=== PATIENT | female | born 1940 | race Caucasian/White ===

== ENCOUNTER 2016-09-08 10:43 | Outpatient (CLI) | payer MEDICARE | END 2016-09-08 10:44 | disposition home or self-care (01) | DX: Z12.31 Encounter for screening mammogram for malignant neoplasm of breast (principal); Z80.3 Family history of malignant neoplasm of breast ==

== ENCOUNTER 2017-02-10 12:36 | Outpatient (CLI) | payer MEDICARE | END 2017-02-10 12:37 | disposition home or self-care (01) | LOC: DI 12:36 | PROVIDERS: ATTEND Family Medicine | DX: I51.7 Cardiomegaly (principal); I34.0 Nonrheumatic mitral (valve) insufficiency; R01.1 Cardiac murmur, unspecified | CPT/HCPCS: 93306 ==

== ENCOUNTER 2017-03-11 08:18 | Outpatient (CLI) | payer MEDICARE, OTHER ==
--- NOTE | 2017-03-11 15:55 | Ultrasound Report ---
RENAL ARTERY DOPPLER: 03/11/2017 CLINICAL HISTORY: Hypertension. TECHNIQUE: Real time scanning by the patcher wood welder including Doppler technique with saved static images were reviewed. RT KIDNEY LT KIDNEY Size: 11.7 x 4.9 x 5.8 cm Size: 11.1 x 6.4 x 5.5 cm SEGMENTAL ARTERY SEGMENTAL ARTERY PSV RI PSV RI Upper Pole 73 0.84 Upper Pole 70 0.87 Mid Pole 78 0.79 Mid Pole 90 0.82 Lower Pole 64 0.83 Lower Pole 95 0.85 RIGHT RENAL ARTERY LEFT RENAL ARTERY PSV RA/AO PSV RA/AO Origin: 111 1.4 Origin: 91 1.2 Proximal: 110 1.4 Proximal: 93 1.2 Mid: 102 1.3 Mid: 133 1.7 --- --- 82 1.1 Distal: 100 1.3 Distal: 56 0.71 --- --- 93 1.2 PROX AORTA PSV: 78 cm/sec RRV patent Yes LRV patent Yes CRITERIA FOR CLASSIFICATION OF RENAL ARTERY DISEASE BY DUPLEX SCANNING RENAL ARTERY DIAMETER REDUCTION RENAL ARTERY PSV RAR Normal < 180 cm/sec <3.5 < 60 % >180 cm/sec <3.5 < 60 % >180 cm/sec <3.5 Occlusion (100)% No signal No signal COMPARISON: Abdomen ultrasound of 05/06/2010. FINDINGS: RIGHT KIDNEY: 11.7 x 4.9 x 5.8 cm. Scattered simple cysts are present, the largest 3.9 x 3.1 x 3.7 cm. LEFT KIDNEY: 11.1 x 6.4 x 5.5 cm. Normal echotexture. IMPRESSION: BASED ON PEAK SYSTOLIC VELOCITY IN THE RENAL ARTERIES, NO EVIDENCE OF A HEMODYNAMICALLY SIGNIFICANT STENOSIS. MILDLY ELEVATED RESISTIVE INDICES WITHIN EACH KIDNEY. MTDD
== END 2017-03-11 08:19 | disposition home or self-care (01) ==
LOC: DI 08:18
PROVIDERS: ATTEND Family Medicine
DX: I10 Essential (primary) hypertension (principal)
CPT/HCPCS: 93975

== ENCOUNTER 2017-04-07 11:29 | Outpatient (CLI) | payer MEDICARE, OTHER ==
[2017-04-07 20:12] LABS: ALBUMIN/GLOBULIN RATIO 1.4 (1.0-2.2); BUN - BLOOD UREA NITROGEN 9 mg/dL (6-20); CALCIUM 8.7 mg/dL (8.5-10.3); CARBON DIOXIDE - CO2 43 mmol/L (21-32); CHLORIDE 86 mmol/L (101-111); CHOL/HDL RATIO 3.4 (<4.4); CHOLESTEROL 150 mg/dL; CREATININE 0.7 mg/dL (0.4-1.0); GFR - MDRD 82 (>89); GLUCOSE 66 mg/dL (70-100); HDL CHOLESTEROL 44 mg/dL; POTASSIUM 1.7 mmol/L (3.5-5.0); SODIUM 141 mmol/L (135-145); TOTAL PROTEIN 6.9 g/dL (6.7-8.2); TRIGLYCERIDES 83 mg/dL; VLDL CHOLESTEROL 17 mg/dL
== END 2017-04-07 11:30 ==
LOC: LAB.WCP 11:29
PROVIDERS: ATTEND Family Medicine
DX: I10 Essential (primary) hypertension (principal); R53.83 Other fatigue; E78.5 Hyperlipidemia, unspecified
CPT/HCPCS: 36415; 80053; 80061; 84443

== ENCOUNTER 2017-04-07 20:56 | Inpatient (IN) | payer MEDICARE, OTHER ==
[2017-04-07] MEDS ORDERED: POTASSIUM CHLORIDE 20 MEQ TABLET PO STA (21:07)
[2017-04-07] MEDS ORDERED: POTASSIUM CHLOR 10 MEQ/100 ML 10 MEQ/100 ML BAG IV ONE ×2 (21:07→21:19)
[2017-04-07] MEDS ORDERED: POTASSIUM CHLORIDE 20 MEQ TABLET PO ONE (21:18)
[2017-04-07 21:27] LABS: BASOPHILS # (AUTO) 0.2 10^3/uL (0.0-0.1); BASOPHILS % (AUTO) 2.5 %; EOSINOPHILS # (AUTO) 0.3 10^3/uL (0.0-0.7); EOSINOPHILS % (AUTO) 4.2 %; HCT - HEMATOCRIT 36.4 % (37.0-47.0); HGB - HEMOGLOBIN 12.2 g/dL (12.0-16.0); LYMPHOCYTES # (AUTO) 1.3 10^3/uL (1.5-3.5); LYMPHOCYTES % (AUTO) 20.2 %; MEAN CORPUSCULAR HEMOGLOBIN 28.9 pg (27.0-31.0); MEAN CORPUSCULAR HGB CONC 33.6 g/dL (32.0-36.0); MEAN CORPUSCULAR VOLUME 85.9 fL (81.0-99.0); MEAN PLATELET VOLUME 8.6 fL (7.9-10.8); MONOCYTES # (AUTO) 0.3 10^3/uL (0.0-1.0); MONOCYTES % (AUTO) 5.4 %; NEUTROPHILS # (AUTO) 4.2 10^3/uL (1.5-6.6); NEUTROPHILS % (AUTO) 67.7 %; RED BLOOD COUNT 4.24 10^6/uL (4.20-5.40); RED CELL DISTRIBUTION WIDTH 13.6 % (12.0-15.0); UNCORRECTED WHITE BLOOD COUNT 6.2 x10^3/uL; WHITE BLOOD COUNT 6.2 x10^3/uL (4.8-10.8)
[2017-04-07 21:48] LABS: ALBUMIN/GLOBULIN RATIO 1.3 (1.0-2.2); BILIRUBIN,TOTAL 0.6 mg/dL (0.2-1.0); CALCIUM 8.8 mg/dL (8.5-10.3); CREATININE 0.8 mg/dL (0.4-1.0); PHOSPHORUS 3.2 mg/dL (2.5-4.6); TOTAL PROTEIN 6.3 g/dL (6.7-8.2)
[2017-04-07 21:49] LABS: POTASSIUM 1.7 mmol/L (3.5-5.0)
--- NOTE | 2017-04-07 21:54 | ED Physician Documentation ---
History of Present Illness - Stated complaint Stated Complaint: HIGH BP - Chief complaint Chief Complaint: Cardiac - History obtained from History obtained from: Patient, EMS - Additonal information Additional information: Patient is a 76 year old female who was sent into the emergency department for low potassium levels. Patient states that for the last two weeks she has not been feeling well and her blood pressure has been elevated. Patient states that her systolics are normally in the 90s but recently they have been close to 150. Patient states that she went to the clinic today and they did routine blood work. Patient was called back because she was found to have a potassium of 1.7. Review of Systems Constitutional: reports: Fatigue. denies: Fever, Chills Eyes: denies: Decreased vision, Photophobia Ears: reports: Reviewed and negative Nose: denies: Rhinorrhea / runny nose, Congestion Throat: reports: Reviewed and negative Cardiac: reports: Chest pain / pressure, Palpitations Respiratory: reports: Dyspnea. denies: Cough, Wheezing GI: denies: Nausea, Vomiting : reports: Frequency. denies: Dysuria Skin: denies: Rash, Lesions, Abrasion (s) Musculoskeletal: denies: Neck pain, Back pain, Extremity pain Neurologic: reports: Generalized weakness. 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 HEENT: Tonsil/Adenoidectomy - Present Medications Home Medications: Ambulatory Orders Medication Instructions Recorded Confirmed Allertec 10 mg PO DAILY 08/11/15 08/11/15 Aspirin [Adult Low Dose Aspirin EC] 81 mg PO DAILY 08/11/15 08/11/15 Calcium Carbonate 2,400 mg PO DAILY 08/11/15 08/11/15 Cholecalciferol (Vitamin D3) 1,000 unit PO DAILY 08/11/15 08/11/15 [Vitamin D] Citalopram [CeleXA] 20 mg PO DAILY 08/11/15 08/11/15 Glucosam/Chondr-MSM#6/Manganes 1 each PO DAILY 08/11/15 08/11/15 [Glucosamine-Chondroitin Sftgl] Hydrochlorothiazide 25 mg PO DAILY 08/11/15 08/11/15 Magnesium Oxide [Magnesium] 400 mg PO DAILY 08/11/15 08/11/15 Simvastatin 20 mg PO DAILY 08/11/15 08/11/15 - Allergies Allergies/Adverse Reactions: Allergies Allergy/AdvReac Type Severity Reaction Status Date / Time bee pollen Allergy Anaphylaxis Verified 04/07/17 21:57 esomeprazole magnesium * Allergy Unknown Verified 04/07/17 21:57 [From Nexium] Penicillins Allergy Hives Verified 04/07/17 21:57 pineapple Allergy Hives Verified 04/07/17 21:57 PD ED PE NORMAL - Vitals Vital signs reviewed: Yes - General General: Alert and oriented X 3, No acute distress - HEENT HEENT: Atraumatic, PERRL - Neck Neck: Supple, no meningeal sign, No JVD - Cardiac Cardiac: RRR, No rub - Respiratory Respiratory: No respiratory distress, Clear bilaterally - Abdomen Abdomen: Soft, Non tender, Non distended - Derm Derm: Normal color, Warm and dry, No rash - Extremities Extremities: No deformity, No tenderness to palpate - Neuro Neuro: Alert and oriented X 3, No motor deficit, No sensory deficit, Normal speech - Psych Psych: Normal mood, Normal affect PD ED PE EXPANDED - HEENT HEENT: Dry mucous membranes - Cardiac Cardiac: Murmur Present Results - Vitals Vitals: Vital Signs - 24 hr 04/07/17 04/07/17 20:59 21:45 Temperature 35.9 C L 36.5 C Heart Rate 62 56 L Respiratory 18 16 Rate Blood Pressure 168/82 H 165/78 H O2 Saturation 100 97 Oxygen O2 Source Room air - EKG (time done) 2115 Rate: Rate (enter#) (56) Rhythm: NSR [place]: LAD Intervals: Prolonged TN, Prolonged QT Ischemia: ST depression, Non specific changes Compare to prior EKG: Old EKG unavailable - Labs Labs: Laboratory Tests 04/07/17 04/07/17 04/07/17 21:15 21:15 21:15 WBC 6.2 RBC 4.24 Hgb 12.2 Hct 36.4 L MCV 85.9 MCH 28.9 MCHC 33.6 RDW 13.6 Plt Count 254 MPV 8.6 Neut # 4.2 Lymph # 1.3 L [place] # 0.3 Eos # 0.3 Baso # 0.2 H Absolute Nucleated RBC 0.00 Nucleated RBC % 0.0 Sodium 142 Potassium 1.7 L* Chloride 88 L Carbon Dioxide 43 H* Anion Gap 11.0 BUN 11 Creatinine 0.8 Estimated GFR (MDRD) 70 L Glucose 88 Calcium 8.8 Phosphorus 3.2 Magnesium 2.0 Total Bilirubin 0.6 AST 34 ALT 35 Alkaline Phosphatase 61 Troponin I 0.06 B-Natriuretic Peptide Total Protein 6.3 L Albumin 3.5 Globulin 2.8 Albumin/Globulin Ratio 1.3 Lipase 35 TSH 04/07/17 04/07/17 21:15 21:15 WBC RBC Hgb Hct MCV MCH MCHC RDW Plt Count MPV Neut # Lymph # [place] # Eos # Baso # Absolute Nucleated RBC Nucleated RBC % Sodium Potassium Chloride Carbon Dioxide Anion Gap BUN Creatinine Estimated GFR (MDRD) Glucose Calcium Phosphorus Magnesium Total Bilirubin AST ALT Alkaline Phosphatase Troponin I B-Natriuretic Peptide 1226 H Total Protein Albumin Globulin Albumin/Globulin Ratio Lipase TSH 4.37 - Rads (name of study) chest x-ray Radiology: Final report received (cardiomegaly) PD MEDICAL DECISION MAKING - ED course Complexity details: reviewed old records, reviewed results, re-evaluated patient , considered differential, d/w patient, d/w family ED course: Patient was seen and examined at bedside. IV access was gained and labs were drawn. ekg was performed which showed prolonged qt, and prolonged pr. chest x- ray was performed. Previous results from the clinic were reviewed and patient was empirically started on potassium both oral and IV. hospitalist was contacted and the case was discussed with him. Patient was admitted for further evaluation and care. Departure - Departure Disposition: 66 [facility] DC/Xfer Clinical Impression: Hypokalemia Condition: Stable
--- NOTE | 2017-04-07 22:06 | XRAY Preliminary Report ---
Exam: XR CHEST 2 VIEW PA/LAT IMPRESSION: Cardiomegaly, otherwise unremarkable 2-view chest radiography. [facility] SITE ID: [id number]
--- NOTE | 2017-04-07 22:09 | XRAY Report ---
EXAM: CHEST RADIOGRAPHY EXAM DATE: 04/07/2017 09:34 PM. CLINICAL HISTORY: Chest pain and shortness of breath for 2 days. COMPARISON: 03/22/2017. TECHNIQUE: 2 views. FINDINGS: Lungs/Pleura: No focal opacities evident. No pleural effusion. No pneumothorax. Normal volumes. Mediastinum: Large heart. Other: No compression fractures. IMPRESSION: Cardiomegaly, otherwise unremarkable 2-view chest radiography. [facility] Referring Provider Line: [phone] SITE ID: [id number]
[2017-04-07] MEDS ORDERED: PROCHLORPERAZINE 10 MG/2 ML VIAL IVP PRN (22:25)
[2017-04-07] MEDS ORDERED: SODIUM CHLORIDE FLUSH 0.9% 10 ML SYRINGE IVP PRN (22:25)
[2017-04-07] MEDS ORDERED: ONDANSETRON 4 MG/2 ML VIAL IVP PRN (22:25)
[2017-04-07] MEDS ORDERED: ZOLPIDEM 5 MG TABLET PO PRN (22:25)
[2017-04-07] MEDS ORDERED: PROMETHAZINE 25 MG/1 ML VIAL IM PRN (22:25)
[2017-04-07] MEDS ORDERED: oxyCODONE 5 MG TABLET PO PRN (22:25)
[2017-04-08] MEDS: POTASSIUM CHLORIDE 20 MEQ TABLET PO SCH ×7 (00:07→21:01)
[2017-04-08] MEDS: SODIUM CHLORIDE FLUSH 0.9% 10 ML SYRINGE IVP SCH ×3 (00:24→21:01)
[2017-04-08] MEDS: POTASSIUM CHLOR 10 MEQ/100 ML 10 MEQ/100 ML BAG IV SCH ×17 (00:25→23:53)
[2017-04-08] MEDS: ACETAMINOPHEN 325 MG TABLET PO PRN (00:26)
--- NOTE | 2017-04-08 02:48 | HISTORY & PHYSICAL EXAMINATION ---
Chief Complaint - Chief Complaint Chief Complaint: Low potassium History of Present Illness - Admitted From Admitted From:: Emergency department - History Obtained From Records Reviewed: Yes History obtained from: Patient Exam Limitations: None - History of Present Illness HPI Comment/Other: Patient is a 76-year-old female with a past medical history significant for hypertension, hyperlipidemia and history of spinal fusion who presented to the emergency department with a chief complaint of low potassium. The patient states that over the course of the last month she has been having progressively worsening shortness of air with exertion. She states that over the last 2 days it has become significantly worse to a point where she states that she cannot even get up a full flight of stairs without having to stop because of shortness of breath. The patient also states that she has been feeling very tired and has generalized weakness over the last week. The patient states that she has been checking her blood pressure at home and it has been persistently elevated over the last 3-4 weeks. The patient was seen by her primary care physician a few weeks ago and at that time the patient's hydrochlorothiazide was stopped and the patient was started on lisinopril, metoprolol and clonidine. The patient also states that she was evaluated for her hypertension with an echocardiogram a few months ago which showed that the patient did have mildly decreased ejection fraction. The patient also was evaluated with a renal ultrasound to look for renal artery stenosis which was negative. The patient admits to having had a dry cough for the last month as well as orthopnea when she goes to lie in bed. The patient also admitted to a 50 pound weight loss over the last year however she states that this was intentional. Yesterday the patient went to her primary care physician's office and underwent lab work and was called tonight and told to go to the emergency department because of her potassium being low. On presentation the patient states that she continues to feel weak and continues to have shortness of air with exertion. The patient denies having any increased lower extremity swelling. The patient also denies any fevers or chills. The patient denies any palpitations. The patient denies having had any recent diarrhea, vomiting and she denies any decreased oral intake. The patient states that she has not taken her hydrochlorothiazide for at least 2 weeks. The patient states that her blood pressure continues to be high in the 150s when she checks at home. She states prior to a few months ago her blood pressure used to run in the 90s over 60s. The patient denies any headache, blurred vision, runny nose, sore throat, nasal congestion, difficulty swallowing, abdominal pain, nausea, constipation, urinary urgency, urinary frequency, dysuria, joint pains, muscle aches, back pain, neck stiffness, changes in appetite, polydipsia or polyphagia. The patient also denies any focal neurologic deficits. On presentation to the emergency department the patient was afebrile and was hypertensive with a blood pressure of 168/82 but otherwise was not in any respiratory or cardiovascular distress. The patient underwent repeat lab work which did reveal a potassium of 1.7 with a chloride of 88 and a bicarb level of 43. The patient was also found to have a BNP of 1226 and a troponin of 0.06. The patient's TSH was 4.37 and her CBC was normal. The patient was given oral potassium in the emergency department and admitted to the hospital for severe hypokalemia. 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 Living arrangement: At home Living Situation: With spouse/s.o. Social History Notes: The patient lives in [place] with her who has mild Alzheimer's dementia. The patient states that her is still fairly independent but she is his primary caregiver. The patient has 2 biological children a son and a daughter and also a step daughter. 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 She retired to [employer]. The patient has never smoked she rarely drinks alcohol and she denies any illicit drug use. - Substance History Use: Uses substance without health or social issues: NONE Abuse: Recurrent use of substance despite neg consequences: NONE Dependence: Experiences withdrawal or developed tolerances: NONE - POLST Patient has POLST: No POLST Status: Full Code Meds/Allgy - Home Medications Home Medications: Ambulatory Orders Medication Instructions Recorded Confirmed Allertec 10 mg PO DAILY 08/11/15 08/11/15 Aspirin [Adult Low Dose Aspirin EC] 81 mg PO DAILY 08/11/15 08/11/15 Calcium Carbonate 2,400 mg PO DAILY 08/11/15 08/11/15 Cholecalciferol (Vitamin D3) 1,000 unit PO DAILY 08/11/15 08/11/15 [Vitamin D] Citalopram [CeleXA] 20 mg PO DAILY 08/11/15 08/11/15 Glucosam/Chondr-MSM#6/Manganes 1 each PO DAILY 08/11/15 08/11/15 [Glucosamine-Chondroitin Sftgl] Magnesium Oxide [Magnesium] 400 mg PO DAILY 08/11/15 08/11/15 Simvastatin 20 mg PO DAILY 08/11/15 08/11/15 Lisinopril 20 mg PO BID 04/08/17 04/08/17 Metoprolol Tartrate 25 mg PO BID 04/08/17 04/08/17 cloNIDine [Catapres] 0.1 mg PO DAILY 04/08/17 04/08/17 - Allergies Allergies/Adverse Reactions: Allergies Allergy/AdvReac Type Severity Reaction Status Date / Time bee pollen Allergy Anaphylaxis Verified 04/07/17 21:57 esomeprazole magnesium * Allergy Unknown Verified 04/07/17 21:57 [From Nexium] Penicillins Allergy Hives Verified 04/07/17 21:57 pineapple Allergy Hives Verified 04/07/17 21:57 Review of Systems - Other Findings Other Findings: A comprehensive review of systems was performed the pertinent positives and negatives are stated above in the HPI and the remainder of the review of systems is negative. Exam - Vital Signs Reviewed Vital Signs: Yes Vital Signs: Vital Signs x48h Pulse Resp BP Pulse Ox 04/07/17 22:44 56 L 15 160/65 H 93 - Physical Exam General Appearance: positive: No acute distress, Alert Eyes Bilateral: positive: Normal inspection, PERRL, EOMI, No lid inflammation, Conjunctivae nml, No scleral icterus ENT: positive: ENT inspection nml, Pharynx nml, Dry mucous membranes. negative : Purulent nasal drainage, Pharyngeal erythema, Oral lesions Neck: positive: Nml inspection, Thyroid nml, No JVD, Trachea midline. negative : Thyromegaly, Lymphadenopathy (R), Lymphadenopathy (L), Stiff neck, Carotid bruit, Tracheal deviation Respiratory: positive: Chest non-tender, No respiratory distress, Rales (Mild bibasilar) Cardiovascular: positive: Regular rate & rhythm, No murmur, No gallop Peripheral Pulses: positive: 2+ Abdomen: positive: Non-tender, No organomegaly, Nml bowel sounds, No distention. negative: Guarding, Rebound, Hepatomegaly, Splenomegaly Back: positive: Nml inspection. negative: CVA tenderness (R), CVA tenderness (L ) Skin: positive: Color nml, No rash, Warm. negative: Cyanosis, Diaphoresis Extremities: positive: Non-tender, Full ROM, Nml appearance, No pedal edema. negative: Calf tenderness, Joint swelling Neurologic/Psychiatric: positive: Oriented x3, CN's nml (2-12), Motor nml, Sensation nml, Mood/affect nml Conclusion/Plan - Problem List (1) Hypokalemia Conclusion/Plan: Patient has been having symptoms of generalized weakness, fatigue, exertional dyspnea and the patient is noted that she has been hypertensive for the last several months despite multiple medications she continues to be hypertensive. The patient on routine lab work was found to have a potassium of 1.7 which was confirmed in the emergency department. Patient was alkalotic on her chemistry with hypochloremia. The patient stated that she stopped taking her hydrochlorothiazide over 2 weeks ago. Initially the thought was the patient was hypokalemic secondary to thiazide diuretic use however given the diuretic has not been used for over 2 weeks this is very unlikely. The patient is not having diarrhea nor is she vomiting therefore this does not appear to be GI losses causing her hypokalemia. The patient has a normal creatinine but no urine studies are available at this time. It is possible the patient may be having renal losses of potassium although the etiology for this is unclear at this time. The patient may also have primary hyperaldosteronism anemia given her persistent hypertension in conjunction with this hypokalemia. Plan: We will replace patient's potassium both IV and p.o. Patient will be placed on telemetry for monitoring while she is hypokalemic Monitor potassium every 8 hours Check urine potassium, urine sodium, urine creatinine, urine chloride, urine microalbumin, urine analysis and microscopy, 24 hour urine potassium, cortisol level and aldosterone/renin activity. (2) Hypertension Conclusion/Plan: The patient has newly diagnosed hypertension over the last several months which seems to have been resistant to medications. Patient was previously on hydrochlorothiazide but then was switched to metoprolol, lisinopril and clonidine and continues to be hypertensive. Yesterday her primary care physician added amlodipine but she has not taken amlodipine yet. Patient has been worked up with a renal ultrasound to look for secondary causes of hypertension. Patient's renal ultrasound showed no evidence of renal artery stenosis. The patient also underwent an echocardiogram which did show left ventricular hypertrophy consistent with likely long-standing hypertension as well as a reduced ejection fraction. Plan: We will confirm the patient's doses of metoprolol and lisinopril and restart these medications while the patient is hospitalized Monitor blood pressure Titrate antihypertensive medication Check aldosterone/rennin activity to rule out possible primary hyperaldosteronism as source of patient's hypertension Check cortisol level Qualifiers: Hypertension type: unspecified Qualified Code(s): I10 - Essential (primary ) hypertension (3) CHF (congestive heart failure) Conclusion/Plan: Patient presents with increasing exertional dyspnea, mild crackles at the bases and elevated BNP of over 1200. The patient does not have any lower extremity edema, she is not hypoxic and does not appear to be in respiratory distress at rest. The patient does not appear to be in a overt CHF exacerbation. From the patient's symptoms however it is possible that her CHF is progressing or that she may be having ischemic cardiomyopathy. Plan: Repeat echocardiogram given progression in patient's symptoms Continue metoprolol and lisinopril Consider Lasix if patient status worsens. CHF teaching Monitor I's and O's Monitor daily weights Qualifiers: Congestive heart failure type: systolic (4) Hyperlipidemia Conclusion/Plan: Patient has history of hyperlipidemia and is on a statin at home we will continue patient's home dose of statin (5) Prophylactic use of low molecular weight heparin for venous thromboembolism Conclusion/Plan: Patient will be placed on Lovenox for DVT prophylaxis while she is hospitalized. - Lab Results Lab results reviewed: Yes Fish Bones: 04/07/17 21:15 04/07/17 21:15 Other Lab Results: Laboratory Results WBC 6.2 x10^3/uL (4.8-10.8) 04/07/17 21:15 RBC 4.24 10^6/uL (4.20-5.40) 04/07/17 21:15 Hgb 12.2 g/dL (12.0-16.0) 04/07/17 21:15 Hct 36.4 % (37.0-47.0) L 04/07/17 21:15 MCV 85.9 fL (81.0-99.0) 04/07/17 21:15 MCH 28.9 pg (27.0-31.0) 04/07/17 21:15 MCHC 33.6 g/dL (32.0-36.0) 04/07/17 21:15 RDW 13.6 % (12.0-15.0) 04/07/17 21:15 Plt Count 254 10^3/uL (130-450) 04/07/17 21:15 MPV 8.6 fL (7.9-10.8) 04/07/17 21:15 Neut # 4.2 10^3/uL (1.5-6.6) 04/07/17 21:15 Lymph # 1.3 10^3/uL (1.5-3.5) L 04/07/17 21:15 [place] # 0.3 10^3/uL (0.0-1.0) 04/07/17 21:15 Eos # 0.3 10^3/uL (0.0-0.7) 04/07/17 21:15 Baso # 0.2 10^3/uL (0.0-0.1) H 04/07/17 21:15 Absolute Nucleated RBC 0.00 x10^3/uL 04/07/17 21:15 Nucleated RBC % 0.0 /100WBC 04/07/17 21:15 Sodium 142 mmol/L (135-145) 04/07/17 21:15 Potassium 1.7 mmol/L (3.5-5.0) L* 04/07/17 21:15 Chloride 88 mmol/L (101-111) L 04/07/17 21:15 Carbon Dioxide 43 mmol/L (21-32) H* 04/07/17 21:15 Anion Gap 11.0 (6-13) 04/07/17 21:15 BUN 11 mg/dL (6-20) 04/07/17 21:15 Creatinine 0.8 mg/dL (0.4-1.0) 04/07/17 21:15 Estimated GFR (MDRD) 70 (>89) L 04/07/17 21:15 Glucose 88 mg/dL (70-100) 04/07/17 21:15 Calcium 8.8 mg/dL (8.5-10.3) 04/07/17 21:15 Phosphorus 3.2 mg/dL (2.5-4.6) 04/07/17 21:15 Magnesium 2.0 mg/dL (1.7-2.8) 04/07/17 21:15 Total Bilirubin 0.6 mg/dL (0.2-1.0) 04/07/17 21:15 AST 34 IU/L (10-42) 04/07/17 21:15 ALT 35 IU/L (10-60) 04/07/17 21:15 Alkaline Phosphatase 61 IU/L (42-121) 04/07/17 21:15 Troponin I 0.06 ng/mL (<0.49) 04/07/17 21:15 B-Natriuretic Peptide 1226 pg/mL (5-100) H 04/07/17 21:15 Total Protein 6.3 g/dL (6.7-8.2) L 04/07/17 21:15 Albumin 3.5 g/dL (3.2-5.5) 04/07/17 21:15 Globulin 2.8 g/dL (2.1-4.2) 04/07/17 21:15 Albumin/Globulin Ratio 1.3 (1.0-2.2) 04/07/17 21:15 Lipase 35 U/L (22-51) 04/07/17 21:15 TSH 4.37 uIU/mL (0.34-5.60) 04/07/17 21:15 - Diagnostic Imaging Results Diagnostic Imaging Results: positive: Final report reviewed Diagnostic Imaging Results Comments: Chest x-ray Impression: Cardiomegaly, otherwise unremarkable two-view chest radiography. - EKG Results EKG Interpreted Independently: Yes EKG Findings: Left ventricular hypertrophy. Anterior Q waves. Lateral ST depressions. Issues/Core Measures - Anticipated LOS Anticipated Stay Length: 2 or more midnights - DVT/VTE - Prophylaxis VTE/DVT Prophylaxis med ordered at admit?: Yes
[2017-04-08 03:12] LABS: BASOPHILS % (AUTO) 0.7 %; EOSINOPHILS # (AUTO) 0.2 10^3/uL (0.0-0.7); EOSINOPHILS % (AUTO) 2.7 %; HCT - HEMATOCRIT 33.5 % (37.0-47.0); HGB - HEMOGLOBIN 11.4 g/dL (12.0-16.0); LYMPHOCYTES # (AUTO) 1.5 10^3/uL (1.5-3.5); LYMPHOCYTES % (AUTO) 25.9 %; MEAN CORPUSCULAR HEMOGLOBIN 28.8 pg (27.0-31.0); MEAN CORPUSCULAR HGB CONC 34.1 g/dL (32.0-36.0); MEAN CORPUSCULAR VOLUME 84.6 fL (81.0-99.0); MONOCYTES # (AUTO) 0.4 10^3/uL (0.0-1.0); MONOCYTES % (AUTO) 6.9 %; NEUTROPHILS # (AUTO) 3.6 10^3/uL (1.5-6.6); NEUTROPHILS % (AUTO) 63.8 %; RED BLOOD COUNT 3.96 10^6/uL (4.20-5.40); RED CELL DISTRIBUTION WIDTH 13.7 % (12.0-15.0); UNCORRECTED WHITE BLOOD COUNT 5.6 x10^3/uL; WHITE BLOOD COUNT 5.6 x10^3/uL (4.8-10.8)
[2017-04-08 03:28] LABS: CALCIUM 8.2 mg/dL (8.5-10.3); CREATININE 0.6 mg/dL (0.4-1.0); PHOSPHORUS 2.6 mg/dL (2.5-4.6)
[2017-04-08 03:29] LABS: POTASSIUM 1.8 mmol/L (3.5-5.0)
[2017-04-08 04:06] LABS: BILIRUBIN,URINE NEGATIVE (NEGATIVE); PH,URINE 5.5 PH (5.0-7.5)
[2017-04-08 04:12] LABS: UA w/ MICROSCOPIC CHARGE YES
[2017-04-08 04:13] LABS: UR CULTURE IF IND NOT INDICATED; WBC,URINE 0-3 /HPF (0-5)
[2017-04-08] MEDS: ATORVASTATIN 10 MG TABLET PO SCH (09:34)
[2017-04-08] MEDS: CITALOPRAM 10 MG TABLET PO SCH (09:34)
[2017-04-08] MEDS: MAGNESIUM OXIDE 400 MG TABLET PO SCH (09:35)
[2017-04-08] MEDS: FAMOTIDINE 20 MG TABLET PO SCH (09:35)
[2017-04-08] MEDS: ASPIRIN EC 81 MG TABLET PO SCH (09:35)
[2017-04-08] MEDS: ENOXAPARIN 40 MG/0.4 ML SYRINGE SUBQ SCH (09:35)
[2017-04-08] MEDS: POLYETHYLENE GLYCOL 3350 17 GM PACKET PO SCH (09:35)
[2017-04-08 12:02] LABS: CALCIUM 8.2 mg/dL (8.5-10.3); CREATININE 0.6 mg/dL (0.4-1.0)
[2017-04-08] MEDS ORDERED: FUROSEMIDE 40 MG/4 ML VIAL IVP SCH (12:20)
[2017-04-08 19:28] LABS: CALCIUM 8.3 mg/dL (8.5-10.3); CREATININE 0.7 mg/dL (0.4-1.0)
[2017-04-08 19:29] LABS: POTASSIUM 2.1 mmol/L (3.5-5.0)
[2017-04-09] MEDS: POTASSIUM CHLORIDE 20 MEQ TABLET PO SCH ×6 (01:01→20:27)
[2017-04-09] MEDS: POTASSIUM CHLOR 10 MEQ/100 ML 10 MEQ/100 ML BAG IV SCH (01:01)
[2017-04-09 04:18] LABS: POTASSIUM TIMED,URINE 33.9 mmol/L
[2017-04-09] MEDS: SODIUM CHLORIDE FLUSH 0.9% 10 ML SYRINGE IVP SCH ×3 (05:11→17:29)
[2017-04-09 07:08] LABS: BASOPHILS % (AUTO) 0.7 %; EOSINOPHILS # (AUTO) 0.2 10^3/uL (0.0-0.7); EOSINOPHILS % (AUTO) 2.8 %; HCT - HEMATOCRIT 38.1 % (37.0-47.0); HGB - HEMOGLOBIN 12.8 g/dL (12.0-16.0); LYMPHOCYTES # (AUTO) 1.1 10^3/uL (1.5-3.5); LYMPHOCYTES % (AUTO) 16.5 %; MEAN CORPUSCULAR HGB CONC 33.6 g/dL (32.0-36.0); MEAN CORPUSCULAR VOLUME 86.4 fL (81.0-99.0); MEAN PLATELET VOLUME 8.5 fL (7.9-10.8); MONOCYTES # (AUTO) 0.4 10^3/uL (0.0-1.0); MONOCYTES % (AUTO) 6.8 %; NEUTROPHILS # (AUTO) 4.8 10^3/uL (1.5-6.6); NEUTROPHILS % (AUTO) 73.2 %; RED BLOOD COUNT 4.41 10^6/uL (4.20-5.40); RED CELL DISTRIBUTION WIDTH 14.4 % (12.0-15.0); UNCORRECTED WHITE BLOOD COUNT 6.6 x10^3/uL; WHITE BLOOD COUNT 6.6 x10^3/uL (4.8-10.8)
[2017-04-09 07:29] LABS: CALCIUM 8.5 mg/dL (8.5-10.3); CREATININE 0.5 mg/dL (0.4-1.0); MAGNESIUM 1.8 mg/dL (1.7-2.8); PHOSPHORUS 2.8 mg/dL (2.5-4.6)
[2017-04-09 07:30] LABS: POTASSIUM 2.3 mmol/L (3.5-5.0)
[2017-04-09] MEDS: ACETAMINOPHEN 325 MG TABLET PO PRN ×2 (08:07→14:22)
[2017-04-09] MEDS: MAGNESIUM OXIDE 400 MG TABLET PO SCH (08:07)
[2017-04-09] MEDS: ENOXAPARIN 40 MG/0.4 ML SYRINGE SUBQ SCH (09:23)
[2017-04-09] MEDS: ASPIRIN EC 81 MG TABLET PO SCH (09:23)
[2017-04-09] MEDS: CITALOPRAM 10 MG TABLET PO SCH (09:23)
[2017-04-09] MEDS: FAMOTIDINE 20 MG TABLET PO SCH (09:23)
[2017-04-09] MEDS: ATORVASTATIN 10 MG TABLET PO SCH (09:23)
[2017-04-09] MEDS ORDERED: SPIRONOLACTONE 25 MG TABLET PO SCH (10:00)
--- NOTE | 2017-04-09 13:46 | CT Preliminary Report ---
Exam: CT ABDOMEN W/O IMPRESSION: 1. Limited noncontrast enhanced exam. 2. Possible subcentimeter right adrenal nodule. 3. Trace right pleural effusion. [facility] SITE ID: [id number]
--- NOTE | 2017-04-09 13:48 | CT Report ---
EXAM: CT ABDOMEN EXAM DATE: 04/09/2017 12:04 PM. CLINICAL HISTORY: Low K, looking for adrenal mass. COMPARISON: None available. TECHNIQUE: Routine helical CT imaging was performed through the abdomen. IV contrast: None. Enteric contrast: No. Reconstruction: Coronal and sagittal. In accordance with CT protocol optimization, one or more of the following dose reduction techniques w ere utilized for this exam: automated exposure control, adjustment of mA and/or KV based on patient s ize, or use of iterative reconstructive technique. FINDINGS: Lung Bases: Trace right pleural effusion with adjacent atelectasis. Liver: There is a 0.7 cm low-density lesion in the posterior hepatic dome series 3 image 16, too smal l to characterize but statistically most likely representing a small cyst or hemangioma. The unenhanc ed liver otherwise appears grossly unremarkable. Gallbladder/Bile Ducts: Unremarkable. Spleen: Normal. Pancreas: Normal. Adrenal Glands: Possible right adrenal nodule series 3 image 26 measuring approximately 0.4 x 0.9 cm. Kidneys: There are 3 cystic right renal cortical lesions. Negative for hydronephrosis bilaterally. Peritoneal Cavity/Bowel: Normal. No free fluid, free air or adenopathy. No masses or acute inflammato ry process. The appendix is well visualized and normal. Vasculature: There is atherosclerotic calcification in the aorta and iliac arteries without aneurysm. Bones: No significant abnormality. Degenerative L5-S1 disk space narrowing. Other: No pathologic adenopathy. IMPRESSION: 1. Limited noncontrast enhanced exam. 2. Possible subcentimeter right adrenal nodule. 3. Trace right pleural effusion. [facility] Referring Provider Line: [phone] SITE ID: [id number]
[2017-04-09] MEDS: POLYETHYLENE GLYCOL 3350 17 GM PACKET PO SCH (14:12)
[2017-04-09 16:30] LABS: CALCIUM 8.6 mg/dL (8.5-10.3); CREATININE 0.6 mg/dL (0.4-1.0)
--- NOTE | 2017-04-09 17:37 | PROVIDER PROGRESS NOTE ---
Subjective - Prog Note Date Prog Note Date: 04/09/17 Prog Note Time: 17:34 - Subjective Pt reports feeling: Improved Subjective: She and her are worried about why her potassium is still low. We discussed the differential diagnosis. Hydrochlorothiazide was stopped 2 weeks ago. She is not taking any other medication that we do this. I do not think she would have acquired renal tubular acidosis at this late in the game. I have spoken to Dr. Malin, nephrology on-call, and he wonders about aldosterone. She does have high blood pressure. He is asked me to do a CT scan and start Aldactone 100 mg p.o. twice daily. Current Medications - Current Medications Current Medications: Active Medications Acetaminophen (Tylenol) 650 mg PO Q4HR PRN PRN Reason: Pain 1 to 4 Last Admin: 04/09/17 14:22 Dose: 650 mg Aspirin (Ecotrin) 81 mg PO DAILY [facility] Last Admin: 04/09/17 09:23 Dose: 81 mg Atorvastatin Calcium (Lipitor) 10 mg PO DAILY [facility] Last Admin: 04/09/17 09:23 Dose: 10 mg Citalopram Hydrobromide (Celexa) 20 mg PO DAILY [facility] Last Admin: 04/09/17 09:23 Dose: 20 mg Enoxaparin Sodium (Lovenox) 40 mg SUBQ DAILY [facility] Last Admin: 04/09/17 09:23 Dose: 40 mg Famotidine (Pepcid) 20 mg PO DAILY [facility] Last Admin: 04/09/17 09:23 Dose: 20 mg Magnesium Oxide (Mag Ox) 400 mg PO DAILYWM [facility] Last Admin: 04/09/17 08:07 Dose: 400 mg Ondansetron HCl (Zofran Inj) 4 mg IVP Q6HR PRN PRN Reason: Nausea / Vomiting Oxycodone HCl (Roxicodone) 5 mg PO Q4HR PRN PRN Reason: Pain 5 to 7 Polyethylene Glycol (Miralax) 17 gm PO DAILY [facility] Last Admin: 04/09/17 14:12 Dose: 17 gm Potassium Chloride (K-Dur) 40 meq PO Q4H [facility] Last Admin: 04/09/17 17:26 Dose: 40 meq Prochlorperazine Edisylate (Compazine Inj) 10 mg IVP Q6HR PRN PRN Reason: Nausea / Vomiting Promethazine HCl (Phenergan Inj) 25 mg IM Q6HR PRN PRN Reason: Nausea / Vomiting Sodium Chloride (Normal Saline Flush 0.9%) 10 ml IVP PRN PRN PRN Reason: NEEDED PER PROVIDER ORDERS Sodium Chloride (Normal Saline Flush 0.9%) 10 ml IVP Q8HR [facility] Last Admin: 04/09/17 17:29 Dose: 10 ml Spironolactone (Aldactone) 100 mg PO DAILY [facility] Last Admin: 04/09/17 11:24 Dose: 100 mg Zolpidem Tartrate (Ambien) 5 mg PO QPM PRN PRN Reason: Insomnia Allertec 10 mg PO DAILY 08/11/15 Aspirin [Adult Low Dose Aspirin EC] 81 mg PO DAILY 08/11/15 Cholecalciferol (Vitamin D3) [Vitamin D] 1,000 unit PO DAILY 08/11/15 Citalopram [CeleXA] 20 mg PO 209908/11/15 Simvastatin 20 mg PO 209908/11/15 Lisinopril 20 mg PO BID 04/08/17 Metoprolol Tartrate 25 mg PO BID 04/08/17 cloNIDine [Catapres] 0.1 mg PO DAILY 04/08/17 diphenhydrAMINE [Benadryl] 25 mg PO HS 04/08/17 Objective - Vital Signs/Intake & Output Reviewed Vital Signs: Yes Vital Signs: Vital Signs x48h Temp Pulse Resp BP Pulse Ox 04/09/17 16:06 68 158/72 H 04/09/17 15:42 36.7 C 66 18 160/75 H 96 Intake & Output: Intake & Output 04/06/17 04/07/17 04/08/17 04/09/17 23:59 23:59 23:59 23:59 Intake Total 100 6811.149 1320 Output Total 6500 800 Balance 100 -4508.666 480 - Objective General Appearance: positive: No acute distress, Alert Eyes Bilateral: positive: PERRL, EOMI ENT: positive: Pharynx nml Neck: positive: No JVD. negative: Stiff neck, Carotid bruit Respiratory: positive: Chest non-tender. negative: Wheezes, Rales, Rhonchi Cardiovascular: positive: Regular rate & rhythm. negative: Systolic murmur, Gallop/S4, Friction rub Abdomen: positive: Non-tender, No organomegaly, Nml bowel sounds, No distention Skin: positive: Warm, Dry Extremities: positive: No pedal edema Neurologic/Psychiatric: positive: Oriented x3, CN's nml (2-12), Motor nml, Sensation nml - Lab Results Fish Bones: 04/09/17 06:48 04/09/17 15:56 Other Labs: Lab Results x24hrs 04/09/17 04/09/17 04/09/17 Range/Units 15:56 06:48 06:48 WBC 6.6 (4.8-10.8) x10^3/uL RBC 4.41 (4.20-5.40) 10^6/uL Hgb 12.8 (12.0-16.0) g/dL Hct 38.1 (37.0-47.0) % MCV 86.4 (81.0-99.0) fL MCH 29.0 (27.0-31.0) pg MCHC 33.6 (32.0-36.0) g/dL RDW 14.4 (12.0-15.0) % Plt Count 236 (130-450) 10^3/uL MPV 8.5 (7.9-10.8) fL Neut # 4.8 (1.5-6.6) 10^3/uL Lymph # 1.1 L (1.5-3.5) 10^3/uL [place] # 0.4 (0.0-1.0) 10^3/uL Eos # 0.2 (0.0-0.7) 10^3/uL Baso # 0.0 (0.0-0.1) 10^3/uL Absolute Nucleated RBC 0.00 x10^3/uL Nucleated RBC % 0.0 /100WBC Sodium 140 (135-145) mmol/L Potassium 3.0 L (3.5-5.0) mmol/L Chloride 100 L (101-111) mmol/L Carbon Dioxide 32 (21-32) mmol/L Anion Gap 8.0 (6-13) BUN 10 (6-20) mg/dL Creatinine 0.6 (0.4-1.0) mg/dL Estimated GFR (MDRD) 98 (>89) Glucose 134 H (70-100) mg/dL Calcium 8.6 (8.5-10.3) mg/dL Phosphorus (2.5-4.6) mg/dL Magnesium (1.7-2.8) mg/dL B-Natriuretic Peptide 1346 H (5-100) pg/mL Ur 24 Hour Volume mL Ur Potassium 24 Hour (25-125) mmol/24h Ur Potassium Timed mmol/L 04/09/17 04/08/17 04/08/17 Range/Units 06:48 18:50 03:50 WBC (4.8-10.8) x10^3/uL RBC (4.20-5.40) 10^6/uL Hgb (12.0-16.0) g/dL Hct (37.0-47.0) % MCV (81.0-99.0) fL MCH (27.0-31.0) pg MCHC (32.0-36.0) g/dL RDW (12.0-15.0) % Plt Count (130-450) 10^3/uL MPV (7.9-10.8) fL Neut # (1.5-6.6) 10^3/uL Lymph # (1.5-3.5) 10^3/uL [place] # (0.0-1.0) 10^3/uL Eos # (0.0-0.7) 10^3/uL Baso # (0.0-0.1) 10^3/uL Absolute Nucleated RBC x10^3/uL Nucleated RBC % /100WBC Sodium 141 142 (135-145) mmol/L Potassium 2.3 L* 2.1 L* (3.5-5.0) mmol/L Chloride 96 L 91 L (101-111) mmol/L Carbon Dioxide 34 H 40 H* (21-32) mmol/L Anion Gap 11.0 11.0 (6-13) BUN 6 8 (6-20) mg/dL Creatinine 0.5 0.7 (0.4-1.0) mg/dL Estimated GFR (MDRD) 121 82 L (>89) Glucose 104 H 150 H (70-100) mg/dL Calcium 8.5 8.3 L (8.5-10.3) mg/dL Phosphorus 2.8 (2.5-4.6) mg/dL Magnesium 1.8 (1.7-2.8) mg/dL B-Natriuretic Peptide (5-100) pg/mL Ur 24 Hour Volume 6300 mL Ur Potassium 24 Hour 214 H (25-125) mmol/24h Ur Potassium Timed 33.9 mmol/L Assessment/Plan - Problem List (1) Hypokalemia Impression: After starting her on the Aldactone, and only 1 dose, her potassium is come up to 3 today. I will no longer give any IV potassium supplementation and continue on oral. I expected to stop in 2 more doses. Cortisol level is normal. Any other endocrine workup will have to occur as an outpatient. I would like her to see Dr. Malin in follow-up. CT of the abdomen shows a subcentimeter right adrenal node. I do not think this is impressive enough to say that this could be adrenal adenoma. (2) Hypertension Impression: The highest her systolic is been is 168. I think the Aldactone would work well enough if given time. I will not adjust her medications at this time. 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 But lung exam is normal. I am concerned about fluid overload considering we have given her quite a bit of IV fluids to give her IV supplementation of potassium. The Aldactone will help with that. I did give her 1 dose of Lasix as well. Echocardiogram was done on the . She is moderate concentric left ventricular hypertrophy. Left ventricular ejection fraction 55-60%. Moderate increase in left atrial volume index. Mild right atrial enlargement. Mild to moderate aortic regurgitation. Moderate mitral regurgitation. Moderate tricuspid regurgitation and moderately abnormal right heart pressures. Qualifiers: Congestive heart failure type: systolic Congestive heart failure chronicity : acute Qualified Code(s): I50.21 - Acute systolic (congestive) heart failure
--- NOTE | 2017-04-09 17:45 | PROVIDER PROGRESS NOTE ---
Subjective - Prog Note Date Prog Note Date: 04/08/17 Prog Note Time: 18:00 - Subjective Subjective: This is a late entry. The patient was seen multiple times today to make sure her hypokalemia was not causing changes in reflexes, weakness or shortness of breath. She continues to require 10 mEq IV an hour of potassium as well as oral potassium 40 mEq every 4 hours Objective - Vital Signs/Intake & Output Vital Signs: Vital Signs x48h Temp Pulse Resp BP Pulse Ox 04/09/17 16:06 68 158/72 H 04/09/17 15:42 36.7 C 66 18 160/75 H 96 Intake & Output: Intake & Output 04/06/17 04/07/17 04/08/17 04/09/17 23:59 23:59 23:59 23:59 Intake Total 100 8272.905 9520 Output Total 6500 800 Balance 100 -4508.666 480 - Objective General Appearance: positive: Alert Eyes Bilateral: positive: PERRL Neck: positive: No JVD Respiratory: positive: No respiratory distress. negative: Wheezes, Rales, Rhonchi Cardiovascular: positive: Regular rate & rhythm. negative: Gallop/S4, Friction rub Abdomen: positive: Non-tender, No organomegaly, Nml bowel sounds Extremities: positive: No pedal edema - Lab Results Fish Bones: 04/09/17 06:48 04/09/17 15:56 Other Labs: Lab Results x24hrs 04/09/17 04/09/17 04/09/17 Range/Units 15:56 06:48 06:48 WBC 6.6 (4.8-10.8) x10^3/uL RBC 4.41 (4.20-5.40) 10^6/uL Hgb 12.8 (12.0-16.0) g/dL Hct 38.1 (37.0-47.0) % MCV 86.4 (81.0-99.0) fL MCH 29.0 (27.0-31.0) pg MCHC 33.6 (32.0-36.0) g/dL RDW 14.4 (12.0-15.0) % Plt Count 236 (130-450) 10^3/uL MPV 8.5 (7.9-10.8) fL Neut # 4.8 (1.5-6.6) 10^3/uL Lymph # 1.1 L (1.5-3.5) 10^3/uL [place] # 0.4 (0.0-1.0) 10^3/uL Eos # 0.2 (0.0-0.7) 10^3/uL Baso # 0.0 (0.0-0.1) 10^3/uL Absolute Nucleated RBC 0.00 x10^3/uL Nucleated RBC % 0.0 /100WBC Sodium 140 (135-145) mmol/L Potassium 3.0 L (3.5-5.0) mmol/L Chloride 100 L (101-111) mmol/L Carbon Dioxide 32 (21-32) mmol/L Anion Gap 8.0 (6-13) BUN 10 (6-20) mg/dL Creatinine 0.6 (0.4-1.0) mg/dL Estimated GFR (MDRD) 98 (>89) Glucose 134 H (70-100) mg/dL Calcium 8.6 (8.5-10.3) mg/dL Phosphorus (2.5-4.6) mg/dL Magnesium (1.7-2.8) mg/dL B-Natriuretic Peptide 1346 H (5-100) pg/mL Ur 24 Hour Volume mL Ur Potassium 24 Hour (25-125) mmol/24h Ur Potassium Timed mmol/L 04/09/17 04/08/17 04/08/17 Range/Units 06:48 18:50 03:50 WBC (4.8-10.8) x10^3/uL RBC (4.20-5.40) 10^6/uL Hgb (12.0-16.0) g/dL Hct (37.0-47.0) % MCV (81.0-99.0) fL MCH (27.0-31.0) pg MCHC (32.0-36.0) g/dL RDW (12.0-15.0) % Plt Count (130-450) 10^3/uL MPV (7.9-10.8) fL Neut # (1.5-6.6) 10^3/uL Lymph # (1.5-3.5) 10^3/uL [place] # (0.0-1.0) 10^3/uL Eos # (0.0-0.7) 10^3/uL Baso # (0.0-0.1) 10^3/uL Absolute Nucleated RBC x10^3/uL Nucleated RBC % /100WBC Sodium 141 142 (135-145) mmol/L Potassium 2.3 L* 2.1 L* (3.5-5.0) mmol/L Chloride 96 L 91 L (101-111) mmol/L Carbon Dioxide 34 H 40 H* (21-32) mmol/L Anion Gap 11.0 11.0 (6-13) BUN 6 8 (6-20) mg/dL Creatinine 0.5 0.7 (0.4-1.0) mg/dL Estimated GFR (MDRD) 121 82 L (>89) Glucose 104 H 150 H (70-100) mg/dL Calcium 8.5 8.3 L (8.5-10.3) mg/dL Phosphorus 2.8 (2.5-4.6) mg/dL Magnesium 1.8 (1.7-2.8) mg/dL B-Natriuretic Peptide (5-100) pg/mL Ur 24 Hour Volume 6300 mL Ur Potassium 24 Hour 214 H (25-125) mmol/24h Ur Potassium Timed 33.9 mmol/L Assessment/Plan - Problem List (1) Hypokalemia Impression: Continue to give oral potassium and IV potassium. Will consult with nephrology in the morning. (2) Hypertension Impression: As she will long as she stays below 190 systolic without symptoms or 180 systolic with symptoms will not treat. 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 At this time exam is negative for congestive heart failure. She does not have JVD or crackles Qualifiers: Congestive heart failure type: systolic Congestive heart failure chronicity : acute Qualified Code(s): I50.21 - Acute systolic (congestive) heart failure
[2017-04-10] MEDS: POTASSIUM CHLORIDE 20 MEQ TABLET PO SCH ×5 (00:36→17:06)
[2017-04-10] MEDS: SODIUM CHLORIDE FLUSH 0.9% 10 ML SYRINGE IVP SCH ×3 (05:04→21:19)
[2017-04-10 07:02] LABS: CALCIUM 8.9 mg/dL (8.5-10.3); CREATININE 0.5 mg/dL (0.4-1.0); POTASSIUM 3.3 mmol/L (3.5-5.0)
[2017-04-10] MEDS: POLYETHYLENE GLYCOL 3350 17 GM PACKET PO SCH (09:14)
[2017-04-10] MEDS: ENOXAPARIN 40 MG/0.4 ML SYRINGE SUBQ SCH (09:14)
[2017-04-10] MEDS: ATORVASTATIN 10 MG TABLET PO SCH (09:15)
[2017-04-10] MEDS: SPIRONOLACTONE 25 MG TABLET PO SCH ×2 (09:15→14:12)
[2017-04-10] MEDS: MAGNESIUM OXIDE 400 MG TABLET PO SCH (09:16)
[2017-04-10] MEDS: FAMOTIDINE 20 MG TABLET PO SCH (09:16)
[2017-04-10] MEDS: CITALOPRAM 10 MG TABLET PO SCH (09:16)
[2017-04-10] MEDS: ASPIRIN EC 81 MG TABLET PO SCH (09:16)
[2017-04-10] MEDS: ACETAMINOPHEN 325 MG TABLET PO PRN ×2 (11:55→23:40)
[2017-04-10] MEDS ORDERED: IOPAMIDOL-300 100 ML VIAL IVP ONE (11:58)
[2017-04-10] MEDS ORDERED: amLODIPine 5 MG TABLET PO SCH (12:00)
[2017-04-10] MEDS ORDERED: IOPAMIDOL-300 100 ML VIAL ONE (12:01)
--- NOTE | 2017-04-10 13:34 | CT Preliminary Report ---
Exam: CT CHEST ANGIO (PE) IMPRESSION: 1. No pulmonary embolism. 2. Mild respiratory motion artifact with small amount of groundglass at the lung bases that may refle ct small amount of atelectasis or mild pneumonitis. No lobar consolidation or effusions. [facility] SITE ID: [id number]
--- NOTE | 2017-04-10 13:36 | CT Report ---
EXAM: CT ANGIOGRAM CHEST EXAM DATE: 04/10/2017 12:46 PM. CLINICAL HISTORY: Sudden pleuritic left chest pain/davis p walking . COMPARISON: None. TECHNIQUE: Routine helical imaging was performed through the chest in the pulmonary arterial phase. I V Contrast: 100 mL Isovue 300. Reconstructions: Coronal 3-D MIP reconstructions.Sagittal and coronal. In accordance with CT protocol optimization, one or more of the following dose reduction techniques w ere utilized for this exam: automated exposure control, adjustment of mA and/or KV based on patient s ize, or use of iterative reconstructive technique. FINDINGS: Pulmonary Arteries: No filling defects identified to suggest a pulmonary embolism. RV/LV is within normal limits. There is no interventricular septal bowing. There is no reflux of cont rast material in the IVC. Lungs/Pleura: Trachea and central bronchi are patent. Mild respiratory motion artifact during image a cquisition. Small amount of groundglass within the lower lobes. No lobar consolidation. No pleural ef fusion. No pneumothorax. No dominant mass. Mediastinum: Cardiac size appears normal. No pericardial effusion. Aorta and great vessels appear unr emarkable. No bulky adenopathy. Thoracic Aorta: Unremarkable. Upper Abdomen: Partially visualized probable renal cyst and also probable small hepatic cyst. Other: None. IMPRESSION: 1. No pulmonary embolism. 2. Mild respiratory motion artifact with small amount of groundglass at the lung bases that may refle ct small amount of atelectasis or mild pneumonitis. No lobar consolidation or effusions. [facility] Referring Provider Line: [phone] SITE ID: [id number]
--- NOTE | 2017-04-10 16:54 | PROVIDER PROGRESS NOTE ---
Subjective - Prog Note Date Prog Note Date: 04/10/17 Prog Note Time: 16:52 - Subjective Subjective: I had seen her this morning. We were very happy to report that her potassium was rising and a recheck this afternoon showed it to be in the normal range. We were hoping to send her home today. But she has developed severe stabbing left-sided pleuritic chest pain. It is located over her left anterior rib cage. The last 2 ribs. She associates it with pleurisy. She has had pneumonia in the past and whenever she took a deep breath or cough this was the similar sharp stabbing fleeting pain she has had before. She has been having problems with sleeping in the bed. She just cannot get comfortable. She has a chronic cough that she has had for months and it makes her miserable. The first time that pleuritic chest pain happened today was after she been walking in the hallways ambulating and laid back down. She then had again a few hours later while she was talking to her on the phone getting ready to go home. There is no nausea, no diaphoresis. There is no left jaw pain or left shoulder pain with this. Sometimes she thinks is positional. It lasts for a few seconds and then it is gone. Current Medications - Current Medications Current Medications: Active Medications Acetaminophen (Tylenol) 650 mg PO Q4HR PRN PRN Reason: Pain 1 to 4 Last Admin: 04/10/17 11:55 Dose: 650 mg Amlodipine Besylate (Norvasc) 5 mg PO DAILY [facility] Last Admin: 04/10/17 11:55 Dose: 5 mg Aspirin (Ecotrin) 81 mg PO DAILY [facility] Last Admin: 04/10/17 09:16 Dose: 81 mg Atorvastatin Calcium (Lipitor) 10 mg PO DAILY [facility] Last Admin: 04/10/17 09:15 Dose: 10 mg Citalopram Hydrobromide (Celexa) 20 mg PO DAILY [facility] Last Admin: 04/10/17 09:16 Dose: 20 mg Enoxaparin Sodium (Lovenox) 40 mg SUBQ DAILY [facility] Last Admin: 04/10/17 09:14 Dose: 40 mg Famotidine (Pepcid) 20 mg PO DAILY [facility] Last Admin: 04/10/17 09:16 Dose: 20 mg Magnesium Oxide (Mag Ox) 400 mg PO DAILYWM [facility] Last Admin: 04/10/17 09:16 Dose: 400 mg Ondansetron HCl (Zofran Inj) 4 mg IVP Q6HR PRN PRN Reason: Nausea / Vomiting Oxycodone HCl (Roxicodone) 5 mg PO Q4HR PRN PRN Reason: Pain 5 to 7 Polyethylene Glycol (Miralax) 17 gm PO DAILY [facility] Last Admin: 04/10/17 09:14 Dose: 17 gm Potassium Chloride (K-Dur) 40 meq PO Q4H [facility] Last Admin: 04/10/17 14:13 Dose: 40 meq Prochlorperazine Edisylate (Compazine Inj) 10 mg IVP Q6HR PRN PRN Reason: Nausea / Vomiting Promethazine HCl (Phenergan Inj) 25 mg IM Q6HR PRN PRN Reason: Nausea / Vomiting Sodium Chloride (Normal Saline Flush 0.9%) 10 ml IVP PRN PRN PRN Reason: NEEDED PER PROVIDER ORDERS Sodium Chloride (Normal Saline Flush 0.9%) 10 ml IVP Q8HR [facility] Last Admin: 04/10/17 14:13 Dose: 10 ml Spironolactone (Aldactone) 100 mg PO 0900,1400 [facility] Last Admin: 04/10/17 14:12 Dose: 100 mg Zolpidem Tartrate (Ambien) 5 mg PO QPM PRN PRN Reason: Insomnia Allertec 10 mg PO DAILY 08/11/15 Aspirin [Adult Low Dose Aspirin EC] 81 mg PO DAILY 08/11/15 Cholecalciferol (Vitamin D3) [Vitamin D] 1,000 unit PO DAILY 08/11/15 Citalopram [CeleXA] 20 mg PO 209908/11/15 Simvastatin 20 mg PO 209908/11/15 Lisinopril 20 mg PO BID 04/08/17 Metoprolol Tartrate 25 mg PO BID 04/08/17 cloNIDine [Catapres] 0.1 mg PO DAILY 04/08/17 diphenhydrAMINE [Benadryl] 25 mg PO HS 04/08/17 Objective - Vital Signs/Intake & Output Reviewed Vital Signs: Yes Vital Signs: Vital Signs x48h Temp Pulse Resp BP Pulse Ox 04/10/17 15:48 36.9 C 74 16 152/67 H 98 04/10/17 11:23 37.1 C 88 20 152/89 H 98 Intake & Output: Intake & Output 04/07/17 04/08/17 04/09/17 04/10/17 23:59 23:59 23:59 23:59 Intake Total 100 6360.156 3499 1040 Output Total 6500 1100 1200 Balance 100 -4508.666 480 -160 - Objective General Appearance: positive: No acute distress, Alert, Other (She looks more pale and fatigued today than she did yesterday. She is coughing with a dry gentle almost nonstop cough. She says this cough is been present for months) Eyes Bilateral: positive: PERRL, EOMI ENT: positive: Pharynx nml Neck: positive: No JVD. negative: Lymphadenopathy (R), Lymphadenopathy (L), Stiff neck, Carotid bruit Respiratory: positive: Chest non-tender, Other (Slightly diminished at the bases. I palpate along her rib cage. Starting at the back and move forward to the floating ribs and there is no pain. She starts having pain when I reach the anterior chest wall and its the second and third ribs from her left upper quadrant.). negative: Wheezes, Rales, Rhonchi Cardiovascular: positive: Regular rate & rhythm, Systolic murmur. negative: Gallop/S4, Friction rub Abdomen: positive: Non-tender, No organomegaly, Nml bowel sounds, No distention , Other (I pay specific attention to the left upper quadrant trying to palpate spleen and pancreas. No masses palpable. Deep palpation does not reproduce the sharp stabbing pleuritic chest pain over the rib cage.I percussed the left flank and there is no pain) Back: negative: CVA tenderness (L) Skin: positive: Warm, Dry Extremities: positive: Non-tender, Full ROM, No pedal edema Neurologic/Psychiatric: positive: Oriented x3, CN's nml (2-12), Motor nml, Weakness (Mild that she tries to walk around the hallway after not being able to walk for the last few days) - Lab Results Fish Bones: 04/09/17 06:48 04/10/17 13:02 Other Labs: Lab Results x24hrs 04/10/17 04/10/17 Range/Units 13:02 06:31 Sodium 141 (135-145) mmol/L Potassium 3.8 3.3 L (3.5-5.0) mmol/L Chloride 101 (101-111) mmol/L Carbon Dioxide 30 (21-32) mmol/L Anion Gap 10.0 (6-13) BUN 7 (6-20) mg/dL Creatinine 0.5 (0.4-1.0) mg/dL Estimated GFR (MDRD) 121 (>89) Glucose 106 H (70-100) mg/dL Calcium 8.9 (8.5-10.3) mg/dL Assessment/Plan - Problem List (1) Pleuritic chest pain Impression: She states is very similar to the pain she had with pleurisy from pneumonia. Palpation of the anterior left chest rib cage reproduces some of the pain. When I have her cough, it does wince and hurt. Deep breathing does not make it worse. I do think this is pleurisy. I did check a CT pulmonary angiogram to make sure she does not have a PE and she does not. On the basis of her blood pressure, and this pleuritic chest pain, I am keeping her 1 more day. I plan to discharge her today but want to see what her vital signs do with the new medication management and if her pleuritic chest pain changes. (2) Hypokalemia Impression: After starting her on the Aldactone, and after only 1 dose, her potassium had come up to 3. I stopped her IV K and she has been on oral K since yesterday later morning, early afternoon. K has come up to 3.3 and 3.8 today. will decrease K from qid to qd. CT of the abdomen shows a subcentimeter right adrenal node. I do not think this is impressive enough to say that this could be adrenal adenoma with hyperaldosteronism. But she will need to see Dr. Malin, Nephrology in . She does have hypertension as noted below. (3) Hypertension Impression: The highest her systolic had been was 168. I think the Aldactone would work well enough if given time. But her systolic went to 190 today so norvasc added today for one dose. I also reconciled here outpt to inpt list and resumed her clonidine and lopressor. Lisinopril could also be resumed but will see what these interventions do first. 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 But lung exam is normal. However, she has had a cough for months. Could the cough be from pleural fluid? I am concerned about fluid overload considering we have given her quite a bit of IV fluids to give her IV supplementation of potassium. The Aldactone will help with that. I did give her 1 dose of Lasix as well. Echocardiogram was done on the . She is moderate concentric left ventricular hypertrophy. Left ventricular ejection fraction 55-60%. Moderate increase in left atrial volume index. Mild right atrial enlargement. Mild to moderate aortic regurgitation. Moderate mitral regurgitation. Moderate tricuspid regurgitation and moderately abnormal right heart pressures. Qualifiers: Congestive heart failure type: systolic Congestive heart failure chronicity : acute Qualified Code(s): I50.21 - Acute systolic (congestive) heart failure
[2017-04-10] MEDS: METOPROLOL TARTRATE 25 MG TABLET PO SCH (21:18)
[2017-04-11 07:29] VITALS: BP 150/75
[2017-04-11] MEDS ORDERED: POTASSIUM CHLORIDE 20 MEQ TABLET PO SCH (08:00)
[2017-04-11] MEDS: SODIUM CHLORIDE FLUSH 0.9% 10 ML SYRINGE IVP SCH (08:00)
[2017-04-11] MEDS: MAGNESIUM OXIDE 400 MG TABLET PO SCH (08:01)
--- NOTE | 2017-04-11 08:16 | Discharge Plan ---
Discharge Plan Disposition: Home, Self Care Condition: Good Prescriptions: Potassium Chloride [K-Dur] 20 meq PO DAILYWM #30 tablet Spironolactone [Aldactone] 100 mg PO 0900,1400 #60 tablet Diet: Regular Activity Restrictions: Activity as Tolerated Shower Restrictions: No Driving Restrictions: No Additional Instructions or Follow Up instructions: You were admitted because of severe weakness and was found to have a very, very dangerously low potassium. You also have a history of hypertension needing new medications and increasing doses of that medication to control your blood pressure. 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 That high aldosterone could be secreted by adrenal tumors. The adrenal glands sits on top of your kidneys. In looking at the CAT scan during your stay there was no adrenal tumor except a very small nodule over the right kidney. I spoke to a kidney specialist, called a auto porter, Dr. Malin. Dr. Malin has requested that you see him in follow-up. I would ask that your primary care provider, Dr. Al, refer you to Dr. Malin. Dr. Malin needs to finish the workup for the possible high aldosterone levels you have. I will be calling Dr. Al in asking him to check a potassium on April 14. I have given a new potassium retaining diuretic called Aldactone. Plus a low dose of potassium. Now we need to worry that your potassium will get too high. So it is very important you get that potassium checked. While here, you also had sudden onset of left-sided sharp, stabbing chest pain. You tell me that it is reminding you have what felt like to have pleurisy when you had pneumonia in the past. To make sure that you did not have a pulmonary embolus, we did a CT pulmonary angiogram of your lungs and there was no clot in your lungs. So I do agree with you that I think you have pleurisy on that left side. No Smoking: If you smoke, Please STOP! Call for help. Follow-up with: Carlos Al MD [Primary Care Provider] - Medhat Malin MD [Provider Admit Priv/Credential] -
[2017-04-11] MEDS ORDERED: cloNIDine 0.1 MG TABLET PO SCH (09:00)
[2017-04-11] MEDS: POLYETHYLENE GLYCOL 3350 17 GM PACKET PO SCH (09:18)
[2017-04-11] MEDS: CITALOPRAM 10 MG TABLET PO SCH (09:19)
[2017-04-11] MEDS: ASPIRIN EC 81 MG TABLET PO SCH (09:19)
[2017-04-11] MEDS: FAMOTIDINE 20 MG TABLET PO SCH (09:19)
[2017-04-11] MEDS: ENOXAPARIN 40 MG/0.4 ML SYRINGE SUBQ SCH (09:19)
[2017-04-11] MEDS: ATORVASTATIN 10 MG TABLET PO SCH (09:19)
[2017-04-11] MEDS: METOPROLOL TARTRATE 25 MG TABLET PO SCH (09:19)
[2017-04-11] MEDS: SPIRONOLACTONE 25 MG TABLET PO SCH (09:20)
--- NOTE | 2017-04-12 06:18 | DISCHARGE SUMMARY ---
DATE OF ADMISSION: 04/07/2017 DATE OF DISCHARGE: 04/11/2017 PRIMARY CARE PROVIDER: Audi Al MD. DISCHARGE DIAGNOSES 1. Hypokalemia. 2. Hypertension. 3. Chronic congestive heart failure. 4. Pleuritic chest pain. DISCHARGE MEDICATIONS 1. Aspirin 81 mg a day. 2. Alertec 10 mg a day. 3. Vitamin D3 1000 units a day. 4. Celexa 20 mg a day. 5. Clonidine 0.1 mg a day. 6. Benadryl 25 mg at bedtime. 7. Metoprolol tartrate 25 mg p.o. b.i.d. 8. Potassium 20 mEq a day is a new prescription. 9. Spironolactone 100 mg p.o. b.i.d. is a new prescription. 10. Simvastatin 20 mg a day. PRINCIPAL PROCEDURES 1. CT of the abdomen shows a subcentimeter right adrenal nodule. 2. Echocardiogram shows concentric left ventricular hypertrophy, ejection fraction 50-60%. Moderate i ncrease in left atrial volume index. Mild right atrial enlargement. Mild to moderate aortic regurgita tion. Moderate mitral regurgitation. Moderate tricuspid regurgitation. Moderately abnormal heart pres sures. 3. CT angiogram of the chest shows no pulmonary embolus. She has a small amount of ground glass at th e lung bases. No lobar consolidations or effusions. HOSPITAL COURSE: The patient is an exceedingly pleasant 76-year-old white female who lives in her own home and is currently still independent and having to take care of a , who has mild dementia. He is very dependent on her and it is difficult for her to be leaving the home, so this admission wa s emotionally difficult for her. She has had a dry cough for several months. She has been told that s he has a little bit of congestive heart failure. Over the course of the last month, she has been gett ing more short of breath. In the last 2 days, it was to the point where she could not even get up a f ull flight of stairs. She has been feeling exhausted with generalized weakness. She has been checking her blood pressure at home and it has been persistently elevated over the last 3-4 weeks. Her hydroc hlorothiazide was stopped 2 weeks ago and she was started on lisinopril, metoprolol, and clonidine. A n echocardiogram a few months ago showed mild decreased ejection fraction. A renal ultrasound was don e for renal artery stenosis and that was negative. She has had a 50-pound weight loss over the last y ear that is intentional. After seeing her primary care provider several times, the most recent primar y care provider, which was not her old one insisted that she get blood draws done. She had not had he r blood checked for a while. Apparently, her potassium was so low, that she was called at home at [facility] and told to report immediately to the emergency room. In the emergency room, this history was obta ined. She was hypertensive, just very weak and tired with no lymphadenopathy. Regular rate and rhythm and no murmur. Mild bibasilar rales. Her potassium started out at 1.7. Initially 40 mEq p.o. q.8h. with 10 mEq an hour potassium IV did no t raise her potassium very much. She went to 1.8. BNP was 1226. As such, we increased her oral intake to 40 mEq every 4 hours and continued 10 mEq an hour for close to 36 hours. She eventually went up t o 2.1, then 2.3, and on the day of discharge it was finally successfully at 4.2. The day before disch woody, we had been getting ready for discharge, and her potassium was 3.8. We had started her on Aldac tone 100 mg p.o. b.i.d. and done a CT of the abdomen. We had done a phone consult with Dr. Malin, Neph rology, and it was his suggestion that we just go ahead and look for the adrenal adenoma for hyperadr enalism and hyperaldosterone. A subcentimeter nodule was found over the right kidney and nothing more remarkable. Blood pressure was controlled by resuming her medications and adding a single dose of No rvasc. I hesitated to resume her lisinopril in the face of the fact that she was going to be on Aldac tone and potassium orally. I did not want to overshoot my jose manuel and then make her hyperkalemic and I e xplained my rationale to her. Also on the day before discharge, she developed sudden onset of pleuritic chest pain. She had been wa lking in the hallways at my request. She had been so tired and basically bedbound, I wanted to make s ure that she was able to go home safely. After walking in the hallways, she laid back down and had te rrific left-sided pleuritic chest pain underneath the breast and above her left upper quadrant. On ex amination, there was no palpation of masses. The abdomen was not tender at all, as I tried to palpate the spleen or pancreas. Pressing on the anterior rib cage reproduced some of the pain. When I asked her to take a deep breath or cough, it did reproduce the pain. She then shared with me that it seemed to mimic the pain she had had in the past when she had pneumonia and pleurisy. By that time, CT pulm onary angiogram was negative. We kept her one more day, blood pressure was stable, potassium was stable. I have asked her to please see Dr. Al this week because she is going to need a potassium drawn and a blood pressure check. I am also going to ask that she please be referred to Dr. Malin to complete her workup. At the time of discharge, her aldosterone/Renin activity is pending. On the day of discharge, she was alert and oriented. Good spirits. She has a quiet gentle demeanor. T emperature 36.7. Pulse is 68. Blood pressure is 150/75, respirations are 18. She is 98% on room air. Neck is supple. There is no JVD. Lungs continue to have crackles at the bases. My suspicion is that i f she has ground glass opacities on CT, her crackles may be early fibrosis versus true atelectasis or CHF. She has a regular rate and rhythm. The abdomen is soft and nontender. The feet have no edema. I would ask Dr. Al to also send her possibly to Pulmonology to see that she does not have pulmonar y hypertension with early right-sided heart failure. Greater than 30 minutes was spent coordinating discharge on this coty patient. JOB #: [id number] EXT JOB #:[id number]
== END 2017-04-11 10:30 | disposition home or self-care (01) | DRG 640 ==
LOC: ED 20:56 → MS3 22:25
PROVIDERS: ADMIT Internal Medicine; ATTEND Specialist
DX: E87.6 Hypokalemia (principal); I10 Essential (primary) hypertension; I50.23 Acute on chronic systolic (congestive) heart failure; E87.3 Alkalosis; E87.8 Other disorders of electrolyte and fluid balance, not elsewhere classified; I11.0 Hypertensive heart disease with heart failure; R07.81 Pleurodynia; R53.83 Other fatigue; E78.5 Hyperlipidemia, unspecified; Z79.82 Long term (current) use of aspirin; Z98.1 Arthrodesis status; Z87.01 Personal history of pneumonia (recurrent)
CPT/HCPCS: 36415; 71020; 71275; 74150; 80048; 80053; 80061; 81001; 81003; 82043; 82088; 82533; 82570; 83690; 83735; 83880; 84100; 84132; 84133; 84244; 84300; 84443; 84484; 85025; 87086; 93005; 93306; 96365; 99284; 99285

== ENCOUNTER 2017-04-14 14:40 | Outpatient (CLI) | payer MEDICARE, OTHER ==
[2017-04-14 13:24] LABS: ALBUMIN/GLOBULIN RATIO 1.2 (1.0-2.2); BILIRUBIN,TOTAL 1.1 mg/dL (0.2-1.0); CALCIUM 9.4 mg/dL (8.5-10.3); CREATININE 0.9 mg/dL (0.4-1.0); POTASSIUM 4.2 mmol/L (3.5-5.0); TOTAL PROTEIN 7.4 g/dL (6.7-8.2)
== END 2017-04-14 14:41 | disposition home or self-care (01) ==
LOC: LAB.WCP 14:40
PROVIDERS: ATTEND Family Medicine
DX: E78.6 Lipoprotein deficiency (principal)
CPT/HCPCS: 36415; 80053

== ENCOUNTER 2017-05-04 08:00 | Outpatient (CLI) | payer MEDICARE, OTHER | END 2017-05-04 08:01 | disposition home or self-care (01) | LOC: LAB.WCP 08:00 | PROVIDERS: ATTEND Internal Medicine Nephrology | DX: R80.9 Proteinuria, unspecified (principal) | CPT/HCPCS: 82570; 84156 ==

== ENCOUNTER 2017-05-09 11:55 | Outpatient (CLI) | payer MEDICARE, OTHER | END 2017-05-09 11:56 | disposition home or self-care (01) | LOC: LAB.WCP 11:55 | PROVIDERS: ATTEND Internal Medicine Nephrology | DX: E03.9 Hypothyroidism, unspecified (principal); E87.6 Hypokalemia | CPT/HCPCS: 36415; 84132; 84443 ==

== ENCOUNTER 2017-05-24 09:00 | Outpatient (CLI) | payer MEDICARE, OTHER | END 2017-05-24 09:01 | disposition home or self-care (01) | LOC: LAB.WCP 09:00 | PROVIDERS: ATTEND Internal Medicine Nephrology | DX: E78.6 Lipoprotein deficiency (principal) | CPT/HCPCS: 36415; 84132 ==

== ENCOUNTER 2017-05-31 08:00 | Outpatient (CLI) | payer MEDICARE, OTHER | END 2017-05-31 08:01 | disposition home or self-care (01) | LOC: LAB.WCP 08:00 | PROVIDERS: ATTEND Internal Medicine Nephrology | DX: E26.9 Hyperaldosteronism, unspecified (principal); N30.00 Acute cystitis without hematuria; N05.9 Unspecified nephritic syndrome with unspecified morphologic changes | CPT/HCPCS: 81599; 82530; 82570 ==

== ENCOUNTER 2017-06-01 08:00 | Outpatient (CLI) | payer MEDICARE, OTHER ==
[2017-06-01 19:23] LABS: BILIRUBIN,URINE NEGATIVE (NEGATIVE)
== END 2017-06-01 08:01 | disposition home or self-care (01) ==
LOC: LAB.WCP 08:00
PROVIDERS: ATTEND Internal Medicine Nephrology
DX: N30.00 Acute cystitis without hematuria (principal); N05.9 Unspecified nephritic syndrome with unspecified morphologic changes; E26.9 Hyperaldosteronism, unspecified
CPT/HCPCS: 36415; 81003; 82024; 82088; 82436; 84133; 84244; 84300

== ENCOUNTER 2017-06-14 09:47 | Outpatient (CLI) | payer MEDICARE, OTHER ==
[2017-06-14 14:46] LABS: CALCIUM 9.1 mg/dL (8.5-10.3); CREATININE 0.8 mg/dL (0.4-1.0)
== END 2017-06-14 09:48 | disposition home or self-care (01) ==
LOC: LAB.WCP 09:47
PROVIDERS: ATTEND Internal Medicine Nephrology
DX: N05.9 Unspecified nephritic syndrome with unspecified morphologic changes (principal)
CPT/HCPCS: 36415; 80048

== ENCOUNTER 2017-06-21 08:50 | Outpatient (CLI) | payer MEDICARE, OTHER ==
[2017-06-21 13:27] LABS: CALCIUM 9.3 mg/dL (8.5-10.3); CREATININE 0.9 mg/dL (0.4-1.0)
== END 2017-06-21 08:51 | disposition home or self-care (01) ==
LOC: LAB.WCP 08:50
PROVIDERS: ATTEND Internal Medicine Nephrology
DX: N05.9 Unspecified nephritic syndrome with unspecified morphologic changes (principal)
CPT/HCPCS: 36415; 80048

== ENCOUNTER 2017-07-21 08:00 | Outpatient (CLI) | payer MEDICARE, OTHER ==
[2017-07-21 13:16] LABS: CALCIUM 9.1 mg/dL (8.5-10.3); CREATININE 0.8 mg/dL (0.4-1.0)
== END 2017-07-21 08:01 | disposition home or self-care (01) ==
LOC: LAB.WCP 08:00
PROVIDERS: ATTEND Internal Medicine Nephrology
DX: N05.9 Unspecified nephritic syndrome with unspecified morphologic changes (principal)
CPT/HCPCS: 36415; 80048

== ENCOUNTER 2017-08-18 10:16 | Outpatient (CLI) | payer MEDICARE, OTHER ==
[2017-08-18 13:58] LABS: CALCIUM 9.4 mg/dL (8.5-10.3); CREATININE 0.7 mg/dL (0.4-1.0)
== END 2017-08-18 10:17 | disposition home or self-care (01) ==
LOC: LAB.WCP 10:16
PROVIDERS: ATTEND Internal Medicine Nephrology
DX: N05.9 Unspecified nephritic syndrome with unspecified morphologic changes (principal)
CPT/HCPCS: 36415; 80048

== ENCOUNTER 2017-09-19 23:29 | Outpatient (CLI) | payer MEDICARE, OTHER ==
[2017-09-19 20:10] LABS: CALCIUM 8.8 mg/dL (8.5-10.3); CREATININE 0.9 mg/dL (0.4-1.0)
== END 2017-09-19 23:30 | disposition home or self-care (01) ==
LOC: LAB.WCP 23:29
PROVIDERS: ATTEND Internal Medicine Nephrology
DX: N05.9 Unspecified nephritic syndrome with unspecified morphologic changes (principal)
CPT/HCPCS: 36415; 80048

== ENCOUNTER 2017-10-18 08:00 | Outpatient (CLI) | payer MEDICARE, OTHER ==
[2017-10-18 13:47] LABS: CALCIUM 9.2 mg/dL (8.5-10.3); CREATININE 0.7 mg/dL (0.4-1.0)
== END 2017-10-18 08:01 ==
LOC: LAB.WCP 08:00
PROVIDERS: ATTEND Internal Medicine Nephrology
DX: N05.9 Unspecified nephritic syndrome with unspecified morphologic changes (principal)
CPT/HCPCS: 36415; 80048

== ENCOUNTER 2018-01-18 08:00 | Outpatient (CLI) | payer MEDICARE, OTHER ==
[2018-01-18 12:36] LABS: BASOPHILS % (AUTO) 0.8 %; EOSINOPHILS # (AUTO) 0.1 10^3/uL (0.0-0.7); EOSINOPHILS % (AUTO) 2.2 %; HGB - HEMOGLOBIN 12.9 g/dL (12.0-16.0); LYMPHOCYTES # (AUTO) 1.2 10^3/uL (1.5-3.5); LYMPHOCYTES % (AUTO) 20.7 %; MEAN CORPUSCULAR HEMOGLOBIN 30.4 pg (27.0-31.0); MEAN CORPUSCULAR HGB CONC 33.9 g/dL (32.0-36.0); MEAN CORPUSCULAR VOLUME 89.7 fL (81.0-99.0); MEAN PLATELET VOLUME 9.2 fL (7.9-10.8); MONOCYTES # (AUTO) 0.4 10^3/uL (0.0-1.0); MONOCYTES % (AUTO) 7.4 %; NEUTROPHILS % (AUTO) 68.9 %; PLT - PLATELET COUNT 225 10^3/uL (130-450); RED BLOOD COUNT 4.23 10^6/uL (4.20-5.40); RED CELL DISTRIBUTION WIDTH 13.2 % (12.0-15.0); WHITE BLOOD COUNT 5.9 x10^3/uL (4.8-10.8)
[2018-01-18 13:16] LABS: ALBUMIN 3.9 g/dL (3.2-5.5); ALBUMIN/GLOBULIN RATIO 1.3 (1.0-2.2); BILIRUBIN,TOTAL 0.9 mg/dL (0.2-1.0); CREATININE 0.9 mg/dL (0.4-1.0)
== END 2018-01-18 08:01 ==
LOC: LAB.WCP 08:00
PROVIDERS: ATTEND Family Medicine
DX: E26.09 Other primary hyperaldosteronism (principal); E87.6 Hypokalemia; I50.9 Heart failure, unspecified
CPT/HCPCS: 36415; 80053; 85025

== ENCOUNTER 2018-02-07 07:10 | Outpatient (CLI) | payer MEDICARE, OTHER ==
[2018-02-07 12:20] LABS: CALCIUM 9.1 mg/dL (8.5-10.3); CREATININE 0.9 mg/dL (0.4-1.0)
== END 2018-02-07 07:11 ==
LOC: LAB.WCP 07:10
PROVIDERS: ATTEND Family Medicine
DX: E87.6 Hypokalemia (principal); I50.9 Heart failure, unspecified; I10 Essential (primary) hypertension
CPT/HCPCS: 36415; 80048

== ENCOUNTER 2018-09-19 08:00 | Outpatient (CLI) | payer MEDICARE, OTHER ==
[2018-09-19 12:45] LABS: ALBUMIN/GLOBULIN RATIO 1.4 (1.0-2.2); ALKALINE PHOSPHATASE 58 IU/L (42-121); ALT ALANINE AMINOTRANSFERASE 15 IU/L (10-60); AST ASPARTATE AMINOTRANSFERASE 16 IU/L (10-42); BILIRUBIN,TOTAL 0.8 mg/dL (0.2-1.0); BUN - BLOOD UREA NITROGEN 19 mg/dL (6-20); CALCIUM 9.1 mg/dL (8.5-10.3); CARBON DIOXIDE - CO2 30 mmol/L (21-32); CHLORIDE 104 mmol/L (101-111); CHOLESTEROL 158 mg/dL; CREATININE 0.8 mg/dL (0.4-1.0); GFR - MDRD 70 (>89); GLUCOSE 96 mg/dL (70-100); HDL CHOLESTEROL 53 mg/dL; LDL CHOLESTEROL,CALCULATED 94 mg/dL; LDL/HDL RATIO 1.8 (<4.4); SODIUM 140 mmol/L (135-145); TOTAL PROTEIN 6.9 g/dL (6.7-8.2); VLDL CHOLESTEROL 11 mg/dL
[2018-09-19 12:55] LABS: BASOPHILS % (AUTO) 0.8 %; EOSINOPHILS # (AUTO) 0.1 10^3/uL (0.0-0.7); EOSINOPHILS % (AUTO) 1.7 %; LYMPHOCYTES # (AUTO) 1.1 10^3/uL (1.5-3.5); LYMPHOCYTES % (AUTO) 21.7 %; MEAN CORPUSCULAR HEMOGLOBIN 29.3 pg (27.0-31.0); MEAN CORPUSCULAR HGB CONC 32.6 g/dL (32.0-36.0); MEAN CORPUSCULAR VOLUME 89.8 fL (81.0-99.0); MEAN PLATELET VOLUME 9.3 fL (7.9-10.8); MONOCYTES # (AUTO) 0.4 10^3/uL (0.0-1.0); MONOCYTES % (AUTO) 8.4 %; NEUTROPHILS # (AUTO) 3.6 10^3/uL (1.5-6.6); NEUTROPHILS % (AUTO) 67.4 %; PLT - PLATELET COUNT 234 10^3/uL (130-450); RED BLOOD COUNT 4.43 10^6/uL (4.20-5.40); RED CELL DISTRIBUTION WIDTH 13.2 % (12.0-15.0); WHITE BLOOD COUNT 5.3 x10^3/uL (4.8-10.8)
== END 2018-09-19 23:59 | disposition home or self-care (01) ==
LOC: LAB.WCP 08:00
PROVIDERS: ATTEND Family Medicine
DX: E87.6 Hypokalemia (principal); F32.9 Major depressive disorder, single episode, unspecified; I50.9 Heart failure, unspecified; E78.5 Hyperlipidemia, unspecified
CPT/HCPCS: 36415; 80053; 80061; 83721; 84443; 85025

== ENCOUNTER 2018-10-04 09:09 | Outpatient (CLI) | payer MEDICARE, OTHER ==
--- NOTE | 2018-10-04 09:56 | Mammography Report ---
Reason: SCREENING MAMMO Procedure Date: 10/04/2018 Accession Number: [id number] / [id number] Procedure: MGN - Screening Mammo Dig Bilat CPT Code: FULL RESULT: EXAM: Screening Mammo Dig Bilat DATE: 10/04/2018 9:39 AM CLINICAL HISTORY: Screening examination. TECHNIQUE: (B) - Bilateral CC and MLO views were obtained. COMPARISON: 05/07/2014, 07/08/2015, 09/08/2016 PARENCHYMAL PATTERN: (A) - The breasts demonstrate scattered fibroglandular densities bilaterally. FINDINGS: There are no suspicious masses, calcifications, or areas of distortion. IMPRESSION: Negative examination. BI-RADS category 1. RECOMMENDATION: (ANNUAL) - Recommend routine annual screening mammography. BI-RADS CATEGORY: (1) - Negative. STANDARD QUALIFYING STATEMENTS: 1. This examination was not reviewed with the aid of Computer-Aided Detection (CAD). 2. A negative or benign imaging report should not preclude biopsy if clinically suspicious findings are present. 3. Dense breasts may obscure an underlying neoplasm. 4. This examination was reviewed without the aid of 3D breast imaging (tomosynthesis).
== END 2018-10-04 09:10 | disposition home or self-care (01) ==
LOC: DI.N 09:09
DX: Z12.31 Encounter for screening mammogram for malignant neoplasm of breast (principal)
CPT/HCPCS: 77067